=== PATIENT | male | born 1995 | race Caucasian/White ===

== ENCOUNTER 2017-06-06 09:13 | Emergency (ER) | payer MEDICAID, SELFPAY ==
[2017-06-06 09:19] VITALS: BP 136/90; PULSE 114; RESP 18; TEMP 36.7; O2SAT 95; BMI 23.0
--- NOTE | 2017-06-06 09:37 | XR_ITS ---
XR hand RT min 3V Ordering Physician: Stew Munroe MD Patient Age: 22 years: Male HISTORY: ITS.REASON: smashed right 3rd digit TECHNIQUE: 3 view right hand COMPARISON :None FINDINGS Fracture of the distal tuft ring finger. No significant displacement but there isMild cortical step-off seen here distal tuft. Slight distraction & elevation of the distal cortical fracture fragment seen on lateral view view.. On AP view Fracture extending longitudinally disrupting then the distal cortex of distal tuft.. Soft tissue swelling and injury with likely dorsal laceration associated here.. . There is mild swelling about the distal finger IMPRESSION Tuft fracture ring finger.. Minor distal cortical fracture & minor offset but no significant overall displacement. Associated soft tissue injury disruption dorsal aspect distal finger
--- NOTE | 2017-06-06 10:06 | HMH.EDWNDL ---
ED Disposition Clinical Impression: Nail avulsion, finger, Laceration of finger nail bed, Nondisplaced fracture, Laceration Disposition: Home, Self-Care Condition on Discharge: Good Instructions: DI for Laceration Repair Additional Instructions: 1-keep the finger dry and clean. 2-start antibiotics. 3-use a finger splint. 4-2 days wound check. 5-follow-up with orthopedic Dr. Marin. 6-14 days remova. 7-neurovascular check every hour . 8-to return for any redness,fever, discharge or change l Prescriptions: Ibuprofen [Motrin 600mg Tablet] 600 mg PO Q8HP PRN #21 tab PRN Reason: Moderate To Severe Pain cephALEXin [Cephalexin 500mg Tab] 500 mg PO QID #28 tab Referrals: Mayo Marin MD [Staff Physician] - - Critical Care Critical Care Time: No Attestation: On 06/06/17, the high probability of a clinically significant, sudden or life threatening deterioration of the following system(s) required my full and direct attention, intervention and personal management. The time I documented below is in addition to time spent performing reported procedures but includes the following listed in this critical care notation. Medical Decision Making Vital Signs: 06/06/17 09:19 Temperature 98.1 F Temperature Source Oral Pulse Rate [Left Brachial] 114 H Respiratory Rate 18 Blood Pressure [Left Arm] 136/90 Blood Pressure Mean [Left Arm] 105 Blood Pressure Source [Left Arm] Automatic Cuff Blood Pressure Position [Left Arm] Sitting 02 Sat by Pulse Oximetry 95 Oxygen Delivery Method Room Air Orders (Tests/Meds): ED MEDICATIONS Discontinued Medications Generic Name Dose Route Start Last Admin Trade Name Freq PRN Reason Stop Dose Admin Tetanus/Diphtheria Toxoids 0.5 ml 06/06/17 09:37 06/06/17 09:38 Tenivac 0.5ml Syringe IM 06/06/17 09:38 0.5 ml .ONCE ONE Administration ORDERS Category Date Time Status XR hand RT min 3V Stat Exams 06/06/17 09:37 Taken - Radiology Data #1 Image(s): Hand (Nondisplaced fracture of the right ring tuft. ) Image Reviewed: Yes I reviewed the patient's radiology image Preliminary Findings: Abnormal - Hao Inquiry Pt receiving controlled substance: No Hao was queried for this patient: No Medical Decision Making Narrative: Under local anesthesia using a sterile technique I placed a right ring finger block. Using the base of the nail was repositioned. Using four-point 0 Ethilon the nail was secured. Applied Neosporin updated his tetanus. Placed a finger splint with instructions for neurovascular check. I gave the patient Keflex 500 3 times daily with instructions for hourly neurovascular checks and follow-up with Dr. Hinson in the morning. I recehcked his movement and he did move His distal r ring PIP with intact ssensation and cap refill 2 seconds. Wound/Laceration HPI - General Chief Complaint: Wound/Laceration Stated Complaint: WC 06/06/17 lac to right ring finger Mode of Arrival: Ambulatory Limitations: No Limitations Description of Symptoms (Recalled from ER Triage Doc. by RN): laceration to Right 3rd digit - History of Present Illness HPI narrative: 22 years old white male with no significant past medical history works for [employer]. He was working on a machine when his right ring finger was caught with a result of nail avulsion and laceration at the base of the nail. The pain is tolerable and there is no loss of movement, no loss of color. Onset (ago): hour(s) (1 [address] ago.) Place: work Patient tetanus UTD: No Context: accidental, crush injury Associated symptoms: pain - Related Data Previous Rx's Medication Instructions Recorded Ibuprofen [Motrin 600mg 600 mg PO Q8HP PRN #21 tab 06/06/17 Tablet] cephALEXin [Cephalexin 500mg Tab] 500 mg PO QID #28 tab 06/06/17 Allergies Allergy/AdvReac Type Severity Reaction Status Date / Time No Known Allergies Allergy Unverified 05/04/17 14:55 [facility] History I mehta
--- NOTE | 2017-06-06 10:09 | ED_ITS ---
ED Disposition Clinical Impression: Nail avulsion, finger, Laceration of finger nail bed, Nondisplaced fracture, Laceration Disposition: Home, Self-Care Condition on Discharge: Good Instructions: DI for Laceration Repair Additional Instructions: 1-keep the finger dry and clean. 2-start antibiotics. 3-use a finger splint. 4-2 days wound check. 5-follow-up with orthopedic Dr. Marin. 6-14 days remova. 7-neurovascular check every hour . 8-to return for any redness,fever, discharge or change l Prescriptions: Ibuprofen [Motrin 600mg Tablet] 600 mg PO Q8HP PRN #21 tab PRN Reason: Moderate To Severe Pain cephALEXin [Cephalexin 500mg Tab] 500 mg PO QID #28 tab Referrals: Mayo Marin MD [Staff Physician] - - Critical Care Critical Care Time: No Attestation: On 06/06/17, the high probability of a clinically significant, sudden or life threatening deterioration of the following system(s) required my full and direct attention, intervention and personal management. The time I documented below is in addition to time spent performing reported procedures but includes the following listed in this critical care notation. Medical Decision Making Vital Signs: 06/06/17 09:19 Temperature 98.1 F Temperature Source Oral Pulse Rate [Left Brachial] 114 H Respiratory Rate 18 Blood Pressure [Left Arm] 136/90 Blood Pressure Mean [Left Arm] 105 Blood Pressure Source [Left Arm] Automatic Cuff Blood Pressure Position [Left Arm] Sitting 02 Sat by Pulse Oximetry 95 Oxygen Delivery Method Room Air Orders (Tests/Meds): ED MEDICATIONS Discontinued Medications Generic Name Dose Route Start Last Admin Trade Name Freq PRN Reason Stop Dose Admin Tetanus/Diphtheria Toxoids 0.5 ml 06/06/17 09:37 06/06/17 09:38 Tenivac 0.5ml Syringe IM 06/06/17 09:38 0.5 ml .ONCE ONE Administration ORDERS Category Date Time Status XR hand RT min 3V Stat Exams 06/06/17 09:37 Taken - Radiology Data #1 Image(s): Hand (Nondisplaced fracture of the right ring tuft. ) Image Reviewed: Yes I reviewed the patient's radiology image Preliminary Findings: Abnormal - Hao Inquiry Pt receiving controlled substance: No Hao was queried for this patient: No Medical Decision Making Narrative: Under local anesthesia using a sterile technique I placed a right ring finger block. Using the base of the nail was repositioned. Using four-point 0 Ethilon the nail was secured. Applied Neosporin updated his tetanus. Placed a finger splint with instructions for neurovascular check. I gave the patient Keflex 500 3 times daily with instructions for hourly neurovascular checks and follow-up with Dr. Hinson in the morning. I recehcked his movement and he did move His distal r ring PIP with intact ssensation and cap refill 2 seconds. Wound/Laceration HPI - General Chief Complaint: Wound/Laceration Stated Complaint: WC 06/06/17 lac to right ring finger Mode of Arrival: Ambulatory Limitations: No Limitations Description of Symptoms (Recalled from ER Triage Doc. by RN): laceration to Right 3rd digit - History of Present Illness HPI narrative: 22 years old white male with no significant past medical history works for [employer]. He was working on a machine when his right ring finger was caught with a result of nail avulsion and laceratio
[2017-06-06 11:53] VITALS: BP 134/88; PULSE 101; RESP 18; O2SAT 99
== END 2017-06-06 11:53 | disposition home or self-care (01) ==
PROVIDERS: Emergency Provider Emergency Medicine; Family Provider Internal Medicine Adolescent Medicine
DX: S62.604B Fracture of unspecified phalanx of right ring finger, initial encounter for open fracture (principal); W31.9XXA Contact with unspecified machinery, initial encounter; Y92.9 Unspecified place or not applicable; Y99.0 Civilian activity done for income or pay; Y93.9 Activity, unspecified; Z23 Encounter for immunization
CPT/HCPCS: 73130; 90714; 99282

== ENCOUNTER 2020-10-04 17:32 | Emergency (ER) | payer BC, SELFPAY ==
[2020-10-04 17:35] VITALS: BP 128/78; PULSE 76; RESP 20; TEMP 36.9; O2SAT 98; BMI 25.0
[2020-10-04 17:54] LABS: UTC Strep Screen (Rapid) Positive (Negative)
--- NOTE | 2020-10-04 17:54 | HMH.EDUTC ---
[facility] [place] Disposition Clinical Impression: Strep pharyngitis Disposition: Home, Self-Care Condition on Discharge: Good Instructions: DI for Strep Throat Additional Instructions: Replace toothbrush. Take antibiotics as directed until finished. Prescriptions: Amoxicillin [Amoxicillin 875MG Tab] 875 mg PO Q12H #20 tab Transmission Status: Pending to [id number] Referrals: Tim Dudley MD [Primary Care Provider] - Forms: Work/School Release Time of Disposition: 17:58 Medical Decision Making - Hao Inquiry Pt receiving controlled substance: No Vital Signs: 10/04/20 17:35 Temperature 98.4 F Temperature Source Oral Pulse Rate [Left Brachial] 76 Respiratory Rate 20 Blood Pressure [Left Arm] 128/78 Blood Pressure Mean [Left Arm] 94 Blood Pressure Source [Left Arm] Automatic Cuff Blood Pressure Position [Left Arm] Sitting 02 Sat by Pulse Oximetry 98 Oxygen Delivery Method Room Air - Lab Data Lab results reviewed: Yes: I reviewed the patient's lab results. [facility] [place] HPI - General Stated complaint: sore throat Time Seen by Provider: 10/04/20 17:54 Mode of Arrival: Ambulatory Source of Information: Patient Limitations: No Limitations Description of Symptoms (Recalled from Triage Doc. by RN): PATIENT C/O DRY COUGH, SORE THROAT, RUNNY NOSE, AND ACHINESS IN CHEST SINCE LAST NIGHT HEENT Symptoms (Recalled from RN notes): Yes Resp Symptoms (Recalled from RN notes): Yes Skin Symptoms (Recalled from RN notes): No MS Symptoms (Recalled from RN notes): No Functional Status (Recalled from RN notes): WNL - History of Present Illness Provider Complaint: Patient has had a sore throat, runny nose, and chest tightness since last night. No fever. Onset (ago): day(s) (1) Location: chest Relieving factors: none Exacerbating factors: none Associated symptoms: denies other symptoms Treatments prior to arrival: none - Related Data Previous Rx's Medication Instructions Recorded Amoxicillin [Amoxicillin 875MG 875 mg PO Q12H #20 tab 10/04/20 Tab] Allergies Allergy/AdvReac Type Severity Reaction Status Date / Time No Known Allergies Allergy Verified 07/15/17 14:50 - Worker's Comp Is this a Worker's Comp case?: No [facility] History - Hepatitis A Screen Drug use history?: No High risk sexual behaviors?: No History of sexually transmitted infection?: No Currently employed?: No Childcare worker?: No Do you have indoor plumbing?: Yes Do you have electricity?: Yes Attestation statement:: This patient has been screened for Hepatitis A risk factors. I have reviewed the patient's past medical history: Yes Amputation: No Fractures: No - Social History Smoking Status: Never smoker Tobacco Type: smokeless tobacco # Packs/Day (cigarettes): 0 Alcohol Intake: never Occupational Status: other Housing: house Family Hx:: No significant family history ROS Obtained: Yes All systems reviewed & no additional complaints - ENT Ears, Nose, Mouth, and Throat: Reports sore throat Physical Exam - General General appearance: alert, in no apparent distress - Head Head exam: normocephalic - Eye Eye exam: Present: PERRL - ENT ENT exam: Present: normal oropharynx - Expanded ENT Exam Nose exam: Absent: sinus tenderness Throat exam: Present: tonsillar erythema, tonsillomegaly, tonsillar exudate - Respiratory Respiratory exam: Present: normal lung sounds bilaterally - Cardiovascular Cardiovascular exam: Present: regular rate, normal rhythm - Neurological Exam Neurological exam: Present: alert, oriented X3 - Psychiatric Psychiatric exam: Present: normal affect, normal mood - Skin Skin exam: Present: warm, dry, intact
[2020-10-04 17:58] VITALS: BP 128/78; PULSE 76; RESP 20; TEMP 36.9; O2SAT 98
== END 2020-10-04 18:00 | disposition home or self-care (01) ==
PROVIDERS: Emergency Provider Physician Assistant; PCP Internal Medicine Adolescent Medicine
DX: J02.0 Streptococcal pharyngitis (principal)
CPT/HCPCS: 87880; 99202; G0463

== ENCOUNTER 2021-01-05 13:47 | Emergency (ER) | payer BC, SELFPAY ==
[2021-01-05 15:20] VITALS: BP 133/85; PULSE 76; RESP 18; TEMP 37; O2SAT 99; BMI 23.4
--- NOTE | 2021-01-05 15:46 | HMH.EDUTC ---
[facility] [place] Clinical Impression: Enlarged lymph node in neck Disposition: Home, Self-Care Condition on Discharge: Good Instructions: DI for Lymphadenopathy Additional Instructions: follow up with pcp if symptoms worsen or do not improve return or be seen in ed Prescriptions: Amoxicillin [Amoxicillin 500mg Tab] 500 mg PO BID 10 Days #20 tab Transmission Status: Pending to [id number] Referrals: Tim Dudley MD [Primary Care Provider] - Time of Disposition: 15:53 Medical Decision Making - Hao Inquiry Pt receiving controlled substance: No Vital Signs: 01/05/21 15:20 Temperature 98.6 F Temperature Source Oral Pulse Rate [Right Brachial] 76 Respiratory Rate 18 Blood Pressure [Right Arm] 133/85 Blood Pressure Mean [Right Arm] 101 Blood Pressure Source [Right Arm] Automatic Cuff Blood Pressure Position [Right Arm] Sitting 02 Sat by Pulse Oximetry 99 Oxygen Delivery Method Room Air [facility] [place] HPI - General Chief complaint: [facility] Stated complaint: neck left side lymph noes swollen Time Seen by Provider: 01/05/21 15:47 Mode of Arrival: Ambulatory Source of Information: Patient Limitations: No Limitations Description of Symptoms (Recalled from Triage Doc. by RN): PATIENT SWOLLEN LYMPH NODES SINCE LAST NIGHT HEENT Symptoms (Recalled from RN notes): Yes Resp Symptoms (Recalled from RN notes): No Skin Symptoms (Recalled from RN notes): No MS Symptoms (Recalled from RN notes): No Functional Status (Recalled from RN notes): WNL - History of Present Illness Provider Complaint: 25 yr old male presents for swollen lymph node in left neck. - Related Data Previous Rx's Medication Instructions Recorded Amoxicillin [Amoxicillin 875MG 875 mg PO Q12H #20 tab 10/04/20 Tab] Amoxicillin [Amoxicillin 500mg Tab] 500 mg PO BID 10 Days #20 tab 01/05/21 Allergies Allergy/AdvReac Type Severity Reaction Status Date / Time No Known Allergies Allergy Verified 07/15/17 14:50 - Worker's Comp Is this a Worker's Comp case?: No [facility] History - Hepatitis A Screen Drug use history?: No High risk sexual behaviors?: No History of sexually transmitted infection?: No Currently employed?: No Childcare worker?: No Do you have indoor plumbing?: Yes Do you have electricity?: Yes Attestation statement:: This patient has been screened for Hepatitis A risk factors. I have reviewed the patient's past medical history: Yes Amputation: No Fractures: No - Social History Smoking Status: Never smoker Tobacco Type: smokeless tobacco # Packs/Day (cigarettes): 0 Alcohol Intake: never Occupational Status: other Housing: house Family Hx:: No significant family history ROS Obtained: Yes Systems reviewed as appropriate & no additional complaints - Constitutional Constitutional: Reports system reviewed and no additional complaints, except as docu, Denies chills, Denies fever(s) - Eyes Eyes: Reports system reviewed and no additional complaints, except as docu, Denies blurry vision - ENT Ears, Nose, Mouth, and Throat: Reports system reviewed and no additional complaints, except as docu, Reports as per HPI Comments: pain in neck under jaw - Cardiovascular Cardiovascular: Reports system reviewed and no additional complaints, except as docu, Denies chest pain - Respiratory Respiratory: Reports system reviewed and no additional complaints, except as docu, Denies change in phlegm color - Gastrointestinal Gastrointestingal: Reports: system reviewed and no additional complaints, except as docu. Denies: change in stool character - Genitourinary Male Genitourinary: Reports system reviewed and no additional complaints, except as docu - Musculoskeletal Musculoskeletal: Reports system reviewed and no additional complaints, except as docu, Denies joint pain - Integumentary/Breasts Skin/Breast: Reports system reviewed and no additional complaints, except as docu, Denies rash - Aisha
[2021-01-05 16:09] VITALS: BP 133/85; PULSE 76; RESP 18; TEMP 37; O2SAT 99
[2021-01-05 22:12] LABS: UTC Strep Screen (Rapid) Positive (Negative)
== END 2021-01-05 16:11 | disposition home or self-care (01) ==
PROVIDERS: Emergency Provider Nurse Practitioner Family; PCP Internal Medicine Adolescent Medicine
DX: J02.0 Streptococcal pharyngitis (principal); R59.0 Localized enlarged lymph nodes
CPT/HCPCS: 87880; 99202; G0463

== ENCOUNTER 2021-12-30 21:54 | Emergency (ER) | payer BC, SELFPAY ==
[2021-12-30 23:02] VITALS: BP 00/00; PULSE 0; RESP 0; TEMP -17.7; TEMP 0
--- NOTE | 2021-12-30 23:03 | PC.NURSE ---
Pt left without being seen from ER. Was never brought back into the ER due to a lack of an available bed.
== END 2021-12-30 23:03 | disposition left against medical advice (07) ==
PROVIDERS: Emergency Provider Emergency Medicine; PCP Internal Medicine Adolescent Medicine
DX: R10.9 Unspecified abdominal pain (principal); Z53.21 Procedure and treatment not carried out due to patient leaving prior to being seen by health care provider

== ENCOUNTER 2021-12-31 09:29 | Emergency (ER) | payer BC, SELFPAY ==
[2021-12-31 09:48] VITALS: BP 153/100; PULSE 100; RESP 15; TEMP 36.9; O2SAT 99; BMI 23.7
[2021-12-31 09:54] LABS: Apearance,Urine Turbid (Clear); Bilirubin,Urine Negative (Negative); Blood, Urine Negative (Negative); Color,Urine Dark Yellow (Yellow); Glucose,Urine (UA) Negative (Negative); Ketones,Urine Negative (Negative); PH,Urine 6.5 (5.0-8.5); Protein,Urine Negative (Negative); Specific Gravity, Urine >= 1.030 (1.005-1.030); Urobilinogen,Urine 0.2 EU/dl (0.2)
[2021-12-31 09:55] LABS: UTC Leukocyte Esterase,Urine Negative (Negative); UTC Nitrate,Urine Negative (Negative)
--- NOTE | 2021-12-31 10:07 | HMH.EDUTC ---
[facility] [place] Disposition Clinical Impression: Abdominal pain Qualifiers: Abdominal location: unspecified location Qualified Code(s): R10.9 - Unspecified abdominal pain Disposition: Still a Patient Condition on Discharge: Fair Referrals: Tim Dudley MD [Primary Care Provider] - Time of Disposition: 10:30 Medical Decision Making - Medical Records Medical records reviewed: No: I reviewed the patient's medical records. - Hao Inquiry Pt receiving controlled substance: No Vital Signs: 12/31/21 09:48 Temperature 98.4 F Temperature Source Oral Pulse Rate [Left] 100 H Respiratory Rate 15 Blood Pressure [Right Arm] 153/100 H Blood Pressure Mean [Right Arm] 117 02 Sat by Pulse Oximetry 99 - Lab Data Lab Results 12/31/21 09:53: Urine Color Dark yellow, Urine Appearance Turbid, Urine pH 6.5, Ur Specific [place] >= 1.030, Urine Protein Negative, Urine Glucose (UA) Negative, Urine Ketones Negative, Urine Blood Negative, Urine Nitrate Negative, Urine Bilirubin Negative, Urine Urobilinogen 0.2, Ur Leukocyte Esterase Negative Orders (Tests/Meds): ORDERS Category Date Time Status Urine Culture Stat Micro 12/31/21 10:29 Ordered Medical Decision Narrative: he was transferred to the er due to his abdominal pain. [facility] [place] HPI - General Stated complaint: nausea, stomach hurting Time Seen by Provider: 12/31/21 10:07 Mode of Arrival: Ambulatory Source of Information: Patient Limitations: No Limitations Description of Symptoms (Recalled from Triage Doc. by RN): patient comes in with complaints of stomach discomfort. symptoms began to get worse last night. the pain comes and goes. middle to left. weird when he urinates. HEENT Symptoms (Recalled from RN notes): No Resp Symptoms (Recalled from RN notes): No Skin Symptoms (Recalled from RN notes): No MS Symptoms (Recalled from RN notes): No Functional Status (Recalled from RN notes): n/a - History of Present Illness Provider Complaint: He c/o upper abdominal pain for the past 2 days. He rates the pain as a 6 on pain scale. He states the pain is constant, but it does get worse and better at times. He has had nausea but no vomiting. He has had soft bowel movements, but not diarrhea. - Related Data Previous Rx's Medication Instructions Recorded Amoxicillin [Amoxicillin 875MG 875 mg PO Q12H #20 tab 05/21/21 Tab] Amoxicillin [Amoxicillin 500mg Tab] 500 mg PO BID 10 Days #20 tab 01/05/21 Allergies Allergy/AdvReac Type Severity Reaction Status Date / Time No Known Allergies Allergy Verified 12/31/21 09:52 - Worker's Comp Is this a Worker's Comp case?: No [facility] History - Hepatitis A Screen Attestation statement:: This patient has been screened for Hepatitis A risk factors. I have reviewed the patient's past medical history: Yes Amputation: No Fractures: No - Social History Smoking Status: Never smoker Tobacco Type: smokeless tobacco # Packs/Day (cigarettes): 0 Alcohol Intake: never Occupational Status: other Housing: house Family Hx:: No significant family history ROS Obtained: Yes All systems reviewed & no additional complaints - Constitutional Constitutional: Reports as per HPI - Eyes Eyes: Denies eye discharge - ENT Ears, Nose, Mouth, and Throat: Reports as per HPI - Cardiovascular Cardiovascular: Denies chest pain - Respiratory Respiratory: Denies chest congestion, Denies cough - Gastrointestinal Gastrointestingal: Reports: as per HPI - Genitourinary Male Genitourinary: Denies difficulty urinating, Denies urinary frequency, Denies urinary hesitancy - Musculoskeletal Musculoskeletal: Denies joint pain, Denies back pain - Integumentary/Breasts Skin/Breast: Denies rash Physical Exam - General General appearance: alert, in no apparent distress - Head Head exam: atraumatic, normocephalic, normal inspection - Eye Eye exam: Present: normal appearance, PERRL, EOMI - ENT ENT exam: Present: normal exa
--- NOTE | 2021-12-31 10:43 | HMH.EDGENADL ---
ED Disposition Clinical Impression: Abdominal pain Qualifiers: Abdominal location: unspecified location Qualified Code(s): R10.9 - Unspecified abdominal pain Disposition: Home, Self-Care Condition on Discharge: Good Instructions: Gastritis Referrals: Tim Dudley MD [Primary Care Provider] - - Critical Care Critical Care Time: No Attestation: On 12/31/21, the high probability of a clinically significant, sudden or life threatening deterioration of the following system(s) required my full and direct attention, intervention and personal management. The time I documented below is in addition to time spent performing reported procedures but includes the following listed in this critical care notation. Medical Decision Making - Hao Inquiry Pt receiving controlled substance: Yes Hao was queried for this patient: No Risks and benefits of using a controlled substance: were discussed with pt by me Vital Signs: 12/31/21 09:48 12/31/21 10:45 12/31/21 12:32 Temperature 98.4 F 98.4 F Temperature Source Oral Oral Pulse Rate 76 Pulse Rate [Left] 100 H 82 Respiratory Rate 15 20 18 Blood Pressure 136/85 Blood Pressure [Right Arm] 153/100 H 152/101 H Blood Pressure Mean 95 Blood Pressure Mean [Right Arm] 117 118 Blood Pressure Source [Right Arm] Automatic Cuff Blood Pressure Position [Right Arm] Sitting 02 Sat by Pulse Oximetry 99 100 100 Oxygen Delivery Method Room Air Room Air - Lab Data Lab Results 12/31/21 09:53: Urine Color Dark yellow, Urine Appearance Turbid, Urine pH 6.5, Ur Specific [place] >= 1.030, Urine Protein Negative, Urine Glucose (UA) Negative, Urine Ketones Negative, Urine Blood Negative, Urine Nitrate Negative, Urine Bilirubin Negative, Urine Urobilinogen 0.2, Ur Leukocyte Esterase Negative 12/31/21 11:05: WBC 5.8, RBC 5.64, Hgb 16.6, Hct 52.1 H, MCV 92.4, MCH 29.5, MCHC 31.9, RDW 12.9, Plt Count 268, MPV 8.1, Neut % (Auto) 59.8, Lymph % (Auto) 29.5, [place] % (Auto) 7.3, Eos % (Auto) 2.1, Baso % (Auto) 1.3, Neut # (Auto) 3.4, Lymph # (Auto) 1.7, [place] # (Auto) 0.4, Eos # (Auto) 0.1, Baso # (Auto) 0.1 12/31/21 11:05: Sodium 142, Potassium 3.6, Chloride 100, Carbon Dioxide 32 H, Anion Gap 13.6, BUN 10, Creatinine 0.80, Estimated Creat Clear 156, Estimated GFR 116, Est GFR ( Amer) 140, Glucose 107 H, Calcium 9.8, Total Bilirubin 0.3, AST 29, ALT 18, Alkaline Phosphatase 92, Troponin I < 0.01, C-Reactive Protein 0.5, Total Protein 8.2, Albumin 5.0, Globulin 3.2, Albumin/Globulin Ratio 1.6 12/31/21 11:05: Lipase 66 Result diagrams: 12/31/21 11:05 12/31/21 11:05 Orders (Tests/Meds): ED MEDICATIONS Generic Name Dose Route Start Last Admin Trade Name Freq PRN Reason Stop Dose Admin Sodium Chloride 10 ml 12/31/21 11:05 Sodium Chloride 0.9% 10ml Flush Syringe IV 01/30/22 11:04 NEEDED PRN Maintain IV Site Discontinued Medications Generic Name Dose Route Start Last Admin Trade Name Freq PRN Reason Stop Dose Admin Belladonna Alkaloids 60 ml 12/31/21 12:00 12/31/21 12:05 Gi Cocktail 60ml Udc PO 12/31/21 12:01 60 ml ONCE ONE Administration Lactated Ringer's 1,000 mls @ 999 mls/hr 12/31/21 11:00 12/31/21 11:13 Lactated Ringer's 1000 Ml Bag IV 12/31/21 12:00 999 mls/hr .Q1H1M CHRISTIANE Administration Iopamidol 75 ml 12/31/21 11:12 12/31/21 11:13 Iopamidol-370 (76%);100ml Bottle IV 12/31/21 11:13 75 ml ONCE ONE Administration Morphine Sulfate 4 mg 12/31/21 10:48 12/31/21 11:14 Morphine 4mg/Ml Syringe IV 12/31/21 10:49 4 mg ONCE ONE Administration Ondansetron HCl 4 mg 12/31/21 10:48 12/31/21 11:13 Ondansetron 4mg/2ml Vial IV 12/31/21 10:49 4 mg ONCE ONE Administration Sodium Chloride 10 ml 12/31/21 11:12 12/31/21 11:13 Sodium Chloride 0.9% 10ml Syr (Rad Only) IV 12/31/21 11:13 10 ml ONCE ONE Administration ORDERS Category Date Time Status Troponin I Q3H Lab 12/31/21 14:00 Ordered Tr
[2021-12-31 10:45] VITALS: BP 152/101; PULSE 82; RESP 20; TEMP 36.9; O2SAT 100; BMI 23.7
--- NOTE | 2021-12-31 10:49 | CT_ITS ---
FINAL REPORT CLINICAL HISTORY: epigastric pain FINDINGS: CT OF THE ABDOMEN AND PELVIS WITH CONTRAST Axial CT images of the abdomen and pelvis were obtained after the administration of IV contrast. Coronal reformatted images were also obtained and reviewed.This study was performed with techniques to keep radiation doses as low as reasonably achievable (ALARA). Individualized dose reduction techniques using automated exposure control or adjustment of mA and/or kV according to the patient's size were employed. Abdomen: The lung bases are clear. The heart is normal in size. The liver has an unremarkable appearance, without evidence of mass or biliary ductal dilatation. The gallbladder is present. The spleen is unremarkable. No adrenal mass is present. The pancreas has an unremarkable appearance. The kidneys are normal, without evidence of mass or hydronephrosis. The aorta is normal in caliber. There is no free fluid or adenopathy. No mass or abnormal fluid collection is seen. Pelvis: The appendix is mildly enlarged measuring 7 mm but without significant adjacent inflammation. There is no convincing appendicitis. There is wall thickening of the descending colon with mild adjacent stranding which is worrisome for mild colitis. The urinary bladder is unremarkable. There is no evidence of mass or adenopathy. There is no evidence of bowel obstruction. IMPRESSION: Appendix is enlarged but with no significant adjacent inflammation, no convincing appendicitis. Findings worrisome for mild colitis. Reviewed, Interpreted and Dictated by Abram Mendez III, MD Transcribed by Ngozi Farley Authenticated and [facility]
--- NOTE | 2021-12-31 10:52 | ECG_ITS ---
APPROVED REPORT Exam: Resting ECG HR:83 bpm ECG Measurements Heart Rate 83 AXES OH 137 P 58 QRSd 106 QRS 76 QT 386 T 13 QTc 426 Conclusion SINUS RHYTHM WITH SINUS ARRHYTHMIA NORMAL ECG UNCONFIRMED REPORT Electronically signed by : Tim Dudley MD 12/31/2021 17:36:10
--- NOTE | 2021-12-31 10:55 | PC.NURSE ---
EKG performed and given to FAMILIA MEJIA
--- NOTE | 2021-12-31 11:03 | PC.NURSE ---
pt to radiology via wc with geotechnical department manager
--- NOTE | 2021-12-31 11:10 | PC.NURSE ---
pt returned from CT via wc with chief radiology
[2021-12-31 11:19] LABS: Basophils # 0.1 K/mm3 (0-0.2); Basophils % 1.3 % (0.1-2.0); Eosinophils # 0.1 K/mm3 (0.0-0.4); Eosinophils % 2.1 % (0.1-12.0); Hematocrit 52.1 % (42.0-52.0); Hemoglobin 16.6 g/dL (14.1-18.0); Lymphocytes # 1.7 K/mm3 (0.7-4.5); Lymphocytes % 29.5 % (10-50); Mean Corpuscular HGB Conc 31.9 g/dL (31.8-35.4); Mean Corpuscular Hemoglobin 29.5 pg (27.0-31.2); Mean Corpuscular Volume 92.4 fl (80-94); Mean Platelet Volume 8.1 fl (7.4-10.4); Monocytes # 0.4 K/mm3 (0.1-1.0); Monocytes % 7.3 % (1.7-9.3); Neutrophils # 3.4 K/mm3 (1.8-7.8); Neutrophils % 59.8 % (37.0-80.0); Platelet Count 268 K/mm3 (142-424); Red Blood Count 5.64 M/mm3 (4.60-6.20); Red Cell Distribution Width 12.9 % (11.5-17.5); White Blood Count 5.8 K/mm3 (4.8-10.8)
[2021-12-31 11:22] LABS: Alanine Aminotransferase 18 U/L (12-78); Albumin/Globulin Ratio 1.6 (1.1-1.8); Alkaline Phosphatase 92 U/L (38-126); Anion Gap 13.6 mEq/L (5-15); Aspartate Amino Transferase 29 U/L (17-59); Bilirubin,Total 0.3 mg/dl (0.2-1.3); Blood Urea Nitrogen 10 mg/dl (9-20); Calcium 9.8 mg/dl (8.4-10.2); Carbon Dioxide 32 mmol/L (22.0-30.0); Chloride 100 mmol/L (98-107); Creatinine Clearance Estimated 156 mL/min (50-200); Estimated Glomerular Filt Rate 116 ml/min (>60); GFR (African American) 140 ML/MIN (>60); Globulin 3.2 g/dL (1.3-3.2); Glucose 107 mg/dl (74-100); Lipase 66 U/L (23-300); Potassium 3.6 mmoL/L (3.5-5.1); Sodium 142 mmol/L (136-145); Total Protein,Serum 8.2 g/dl (6.3-8.2)
[2021-12-31 11:28] LABS: C-Reactive Protein 0.5 mg/L (0-4)
[2021-12-31 11:40] LABS: Troponin I < 0.01 ng/ml (0.00-0.034)
[2021-12-31 12:32] VITALS: BP 136/85; PULSE 76; RESP 18; O2SAT 100
--- NOTE | 2021-12-31 12:32 | PC.NURSE ---
rounded on pt at this time, pt sitting up in bed, updated pt we are waiting on Ct results. Pt states no needs at this time. Call light within reach, oriented pt to call light prior to leaving room. Will continue to monitor.
[2021-12-31 13:28] VITALS: BP 137/82; PULSE 74; RESP 18; TEMP 36.9; O2SAT 100
== END 2021-12-31 13:29 | disposition home or self-care (01) ==
LOC: UTC 09:34 → ER 10:27
PROVIDERS: Nurse Practitioner Family; Emergency Provider Student in an Organized Health Care Education/Training Program; PCP Internal Medicine Adolescent Medicine
DX: R10.9 Unspecified abdominal pain (principal)
CPT/HCPCS: 74177; 80053; 81003; 83690; 84484; 85025; 86140; 87086; 93005; 96365; 96375; 99284; J2405; Q9967

== ENCOUNTER 2022-03-07 12:13 | Emergency (ER) | payer BC, SELFPAY ==
[2022-03-07 13:57] VITALS: BP 124/79; PULSE 114; RESP 18; TEMP 37.2; O2SAT 98; BMI 24.4
--- NOTE | 2022-03-07 13:58 | EXP.UTC ---
Discharge Plan Disposition Patient Disposition: Home, Self-Care Condition: Good Prescriptions Prescriptions: New azithromycin [Zithromax] 250 mg tablet 250 mg PO UD DOSE PK Qty: 6 0RF Rx Instructions: Take two (2) tablets today, then one (1) tablet days #2 thru #5 methylprednisolone 4 mg Tablets,Dose Pack 4 mg PO DIRECTED Qty: 21 0RF No Action amoxicillin 875 MG tablet 875 mg PO Q12H Qty: 20 0RF amoxicillin 500 MG tablet 500 mg PO BID 10 Days Qty: 20 0RF Referrals Follow up/Referrals: Tim Dudley MD [Primary Care Provider] - See instructions Activity Restrictions/Add. Instructions Additional Instructions/Restrictions: Drink plenty of fluids. Take tylenol or ibuprofen for pain or fever. Take the medications as directed. Follow up with your regular doctor. GO TO THE ER FOR ANY WORSENING SYMPTOMS Clinical Impressions Clinical Impression: Pharyngitis Instructions Patient Instructions: DI for Pharyngitis/Tonsillopharyngitis -- Adult Discharge ED Provider: Mayo Farias [facility] General Stated complaint: sore throat, chest congestion body aches Time Seen by Provider: 03/07/22 13:48 History of Present Illness Provider Complaint: He c/o sore throat for the past 2 days. He also has sinus congestion. He denies significant cough and chest congestion. He has took home covid-19 test and it was negative. Related Data Previous Rx's Medication Instructions Recorded amoxicillin 875 mg tablet 875 mg PO Q12H #20 tabs 10/04/20 amoxicillin 500 mg tablet 500 mg PO BID 10 days #20 tabs 01/05/21 azithromycin 250 mg tablet 250 mg PO UD DOSE PK #6 tabs 03/07/22 (Zithromax) methylprednisolone 4 mg tablets in 4 mg PO DIRECTED #21 tabs 03/07/22 a dose pack Allergies Allergy/AdvReac Type Severity Reaction Status Date / Time No Known Allergies Allergy Verified 03/07/22 14:00 [facility] Social History Smoking Status: Never smoker alcohol intake: never current occupational status: other Travel in the last 8 weeks: None housing: house ROS Obtained: Yes All systems reviewed & no additional complaints except as documented Constitutional Constitutional: Reports chills and Reports fever(s) Eyes Eyes: Denies eye discharge ENT Ears, Nose, Mouth, and Throat: Reports as per HPI Cardiovascular Cardiovascular: Denies chest pain Respiratory Respiratory: Denies chest congestion and Reports cough Gastrointestinal Gastrointestingal: Reports nausea; Denies abdominal pain, constipation, cramping, diarrhea or vomiting Musculoskeletal Musculoskeletal: Denies arthralgias Integumentary/Breasts Skin/Breast: Denies rash Neurologic Neurologic: Denies paresthesias Physical Exam General General appearance: alert and in no apparent distress Head Head exam: atraumatic, normocephalic and normal inspection Eye Eye exam: Present normal appearance, PERRL and EOMI ENT ENT exam: Present mucous membranes moist and normal external ear exam Expanded ENT Exam TM/Canal exam: Bilateral TM: erythema and bulging Nose exam: Absent sinus tenderness Mouth exam: Present normal external inspection; Absent drooling Teeth exam: Present normal inspection Throat exam: Present tonsillar erythema, tonsillomegaly and tonsillar exudate Neck Neck exam: Present normal inspection, full ROM and trachea midline; Absent tenderness, meningismus or lymphadenopathy Chest Chest inspection: Present normal inspection and symmetric chest wall rise; Absent tenderness Respiratory Respiratory exam: Present normal lung sounds bilaterally; Absent respiratory distress, wheezes or stridor Cardiovascular Cardiovascular exam: Present regular rate and normal rhythm; Absent systolic murmur or diastolic murmur Abdominal Exam Abdominal exam: Present soft and normal bowel sounds; Absent distention, tenderness, guarding, rebound or rigidity Extremities Exam Extremit
[2022-03-07 14:03] LABS: UTC Strep Screen (Rapid) Positive (Negative)
[2022-03-07 14:20] VITALS: BP 124/79; PULSE 114; RESP 18; TEMP 37.2
== END 2022-03-07 14:22 | disposition home or self-care (01) ==
PROVIDERS: Emergency Provider Nurse Practitioner Family; PCP Internal Medicine Adolescent Medicine
DX: J02.0 Streptococcal pharyngitis (principal); B95.0 Streptococcus, group A, as the cause of diseases classified elsewhere; R50.9 Fever, unspecified; M79.10 Myalgia, unspecified site; R11.0 Nausea; R09.81 Nasal congestion; Z79.52 Long term (current) use of systemic steroids
CPT/HCPCS: 87880; 99213; G0463

== ENCOUNTER 2022-03-30 20:54 | Emergency (ER) | payer BC, SELFPAY ==
--- NOTE | 2022-03-30 20:50 | ECG_ITS ---
APPROVED REPORT Exam: Resting ECG HR:127 bpm ECG Measurements Heart Rate 127 AXES KS 150 P 78 QRSd 94 QRS 91 QT 306 T 61 QTc 381 Conclusion SINUS TACHYCARDIA BORDERLINE RIGHT AXIS DEVIATION [QRS AXIS > 90] ABNORMAL RHYTHM ECG UNCONFIRMED REPORT Electronically signed by : Tim Dudley MD 03/31/2022 19:42:49
[2022-03-30 20:54] VITALS: BP 171/108; PULSE 132; RESP 16; TEMP 36.9; O2SAT 100; BMI 23.7
--- NOTE | 2022-03-30 20:55 | XR_ITS ---
PROCEDURE INFORMATION: Exam: XR Chest Exam date and time: 03/30/2022 9:00 PM Age: 27 years old Clinical indication: Pain; Radiating; Additional info: Cp TECHNIQUE: Imaging protocol: Radiologic exam of the chest. Views: 2 views. COMPARISON: No relevant prior studies available. FINDINGS: Lungs: No consolidation. Few probable granulomas. Pleural spaces: No significant pleural effusion. No pneumothorax. Heart/Mediastinum: No cardiomegaly. Bones/joints: No displaced fracture. Soft tissues: Unremarkable. IMPRESSION: No definite acute cardiopulmonary disease.
[2022-03-30 21:03] LABS: Basophils # 0.1 K/mm3 (0-0.2); Basophils % 1.6 % (0.1-2.0); Eosinophils % 0.5 % (0.1-12.0); Hematocrit 49.7 % (42.0-52.0); Hemoglobin 16.5 g/dL (14.1-18.0); Lymphocytes # 2.1 K/mm3 (0.7-4.5); Mean Corpuscular HGB Conc 33.2 g/dL (31.8-35.4); Mean Corpuscular Hemoglobin 30.1 pg (27.0-31.2); Mean Corpuscular Volume 90.7 fl (80-94); Mean Platelet Volume 7.7 fl (7.4-10.4); Monocytes # 0.3 K/mm3 (0.1-1.0); Monocytes % 4.6 % (1.7-9.3); Neutrophils # 4.7 K/mm3 (1.8-7.8); Neutrophils % 64.3 % (37.0-80.0); Platelet Count 314 K/mm3 (142-424); Red Blood Count 5.48 M/mm3 (4.60-6.20); Red Cell Distribution Width 12.9 % (11.5-17.5); White Blood Count 7.3 K/mm3 (4.8-10.8)
[2022-03-30 21:13] LABS: Anion Gap 16.6 mEq/L (5-15); Blood Urea Nitrogen 15 mg/dl (9-20); Calcium 9.6 mg/dl (8.4-10.2); Carbon Dioxide 33 mmol/L (22.0-30.0); Chloride 96 mmol/L (98-107); Creatinine Clearance Estimated 137 mL/min (50-200); Estimated Glomerular Filt Rate 100 ml/min (>60); GFR (African American) 122 ML/MIN (>60); Glucose 127 mg/dl (74-100); Potassium 3.6 mmoL/L (3.5-5.1); Sodium 142 mmol/L (136-145)
[2022-03-30 21:28] LABS: Troponin I < 0.01 ng/ml (0.00-0.034)
[2022-03-30 21:30] VITALS: BP 129/104; PULSE 101; RESP 20; O2SAT 95
[2022-03-30 22:00] VITALS: BP 119/75; PULSE 100; RESP 19; O2SAT 98
--- NOTE | 2022-03-30 22:30 | PC.NURSE ---
Pt resting in bed. Lights turned off per request. No needs voiced at this time.
--- NOTE | 2022-03-30 22:41 | PC.NURSE ---
speaking with pt a this time
--- NOTE | 2022-03-30 22:46 | CT_ITS ---
PROCEDURE INFORMATION: Exam: CTA Chest With Contrast Exam date and time: 03/30/2022 11:52 PM Age: 27 years old Clinical indication: Pain; Radiating; Additional info: Md landrum, cp TECHNIQUE: Imaging protocol: Computed tomographic angiography of the chest with contrast. 3D rendering (Not supervised by radiologist): MIP and/or 3D reconstructed images were created by the technologist. Radiation optimization: All CT scans at this facility use at least one of these dose optimization techniques: automated exposure control; mA and/or kV adjustment per patient size (includes targeted exams where dose is matched to clinical indication); or iterative reconstruction. Contrast material: ISOVUE; Contrast volume: 70 ml; Contrast route: INTRAVENOUS (IV); COMPARISON: CR XR CHEST 2V 03/30/2022 9:00 PM FINDINGS: Pulmonary arteries: No pulmonary embolism. Aorta: Unremarkable. No aneurysm. Lungs: Minimal patchy groundglass/nodular airspace disease within posterior periphery RIGHT upper lobe. Few calcified granulomas. Few noncalcified nodules and/or focal scarring, up to 0.3 cm. Pleural spaces: No significant pleural effusion. No pneumothorax. Heart: No cardiomegaly. No pericardial effusion. Lymph nodes: Calcified mediastinal and hilar lymph nodes. Spleen: Small calcification. Bones/joints: Schmorl's nodes. No acute fracture. Soft tissues: Unremarkable. IMPRESSION: 1. No CT evidence of pulmonary embolism. 2. Probable early RIGHT upper lobe pneumonia in proper clinical setting. Followup to resolution to exclude underlying pathology. 3. Pulmonary nodules. If patient does not have known cancer, follow up should be based on clinical information because of the low risk of cancer in this age group. (skip Palma al., Fleischner Society, 2017).
--- NOTE | 2022-03-30 22:46 | [facility].EDCP ---
Discharge Plan Disposition Patient Disposition: Home, Self-Care Prescriptions Prescriptions: New prednisone [prednisone] 20 mg tablet 20 mg PO BID Qty: 10 0RF No Action amoxicillin 875 MG tablet 875 mg PO Q12H Qty: 20 0RF amoxicillin 500 MG tablet 500 mg PO BID 10 Days Qty: 20 0RF azithromycin [Zithromax] 250 mg tablet 250 mg PO UD DOSE PK Qty: 6 0RF Rx Instructions: Take two (2) tablets today, then one (1) tablet days #2 thru #5 methylprednisolone 4 mg Tablets,Dose Pack 4 mg PO DIRECTED Qty: 21 0RF Referrals Follow up/Referrals: Provider,Referral, MD [Primary Care Provider] - See instructions Clinical Impressions Clinical Impression: Atypical chest pain Instructions Patient Instructions: DI for Atypical Chest Pain Discharge ED Provider: Perry Watkins Chest Pain HPI General Chief Complaint: Chest Pain Stated Complaint: cp Time Seen by Provider: 03/30/22 22:46 Mode of Arrival: Ambulatory Source of Information: Patient, Parent(s) and Medical Record Limitations: No Limitations Description of Symptoms (Recalled from ER Triage Doc. by RN): pt c/o chest pain pressure radiating to back that started yesterday History of Present Illness HPI narrative: chest and back pain on lt w/o fever/rash or trauma - no recent viral illness - had elevated hr complaint: chest pain Onset (ago): day(s) Pain location: left chest Severity: moderate JOEL Score for Non-Stemi Age of Patient: <30 years old Heart Rate: 70-89 bpm Systolic Blood Pressure: 120-139 mmhg Serum Creatinine: 0.80-1.19 mg/dl CHF [place] Class: I-No CHF Other Risk Factors: None Non-Stemi Risk Score: 50 Related Data Previous Rx's Medication Instructions Recorded amoxicillin 875 mg tablet 875 mg PO Q12H #20 tabs 10/04/20 amoxicillin 500 mg tablet 500 mg PO BID 10 days #20 tabs 01/05/21 azithromycin 250 mg tablet 250 mg PO UD DOSE PK #6 tabs 03/07/22 (Zithromax) methylprednisolone 4 mg tablets in 4 mg PO DIRECTED #21 tabs 03/07/22 a dose pack prednisone 20 mg tablet 20 mg PO BID #10 tabs 03/31/22 Allergies Allergy/AdvReac Type Severity Reaction Status Date / Time No Known Allergies Allergy Verified 03/07/22 14:[address] [facility] Social History Smoking Status: Current every day smoker tobacco type: smokeless tobacco alcohol intake: never current occupational status: other Travel in the last 8 weeks: None housing: house ROS Obtained: Yes All systems reviewed & no additional complaints except as documented Physical Exam General General appearance: alert Head Head exam: normocephalic Eye Eye exam: Present PERRL and EOMI ENT ENT exam: Present mucous membranes moist Neck Neck exam: Present trachea midline Respiratory Respiratory exam: Present normal lung sounds bilaterally; Absent respiratory distress Cardiovascular Cardiovascular exam: Present regular rate; Absent systolic murmur or rubs Abdominal Exam Abdominal exam: Present soft Extremities Exam Extremities exam: Present full ROM Neurological Exam Neurological exam: Present alert, oriented X3 and CN II-XII intact; Absent motor sensory deficit Psychiatric Psychiatric exam: Present normal affect Skin Skin exam: Absent rash Medical Decision Making Medical Records Medical records reviewed: Yes I reviewed the patient's medical records. Hao Inquiry Pt receiving controlled substance: No Vital Signs: 03/30/22 20:54 03/30/22 21:30 03/30/22 22:00 Temperature 98.4 F Temperature Source Oral Pulse Rate 101 H 100 H Pulse Rate [Right] 132 H Respiratory Rate 16 20 19 Blood Pressure 129/104 H 119/75 Blood Pressure [Right Arm] 171/108 H Blood Pressure Mean [Right Arm] 129 Blood Pressure Source Blood Pressure Position 02 Sat by Pulse Oximetry 100 95 98 Oxygen Delivery Method Room Air Room Air 03/30/22 23:30 03/31/22 00:03 03/31/22 00:03 Temperature 98
[2022-03-30 23:02] LABS: Coronavirus 19, PCR Not Detected (NotDetected); Influenza A, PCR Not Detected (NotDetected); Influenza B, PCR Not Detected (NotDetected)
[2022-03-30 23:15] LABS: Strep Scrn Group A (Rapid) Negative (Negative)
[2022-03-30 23:30] VITALS: BP 137/94; PULSE 94; RESP 17; O2SAT 98
[2022-03-31 00:03] VITALS: BP 136/92; PULSE 78; PULSE 90; RESP 16; TEMP 36.6; O2SAT 98
[2022-03-31 00:24] LABS: Troponin I < 0.01 ng/ml (0.00-0.034)
== END 2022-03-31 00:58 | disposition home or self-care (01) ==
PROVIDERS: Emergency Provider Emergency Medicine
DX: R07.89 Other chest pain (principal); M54.9 Dorsalgia, unspecified; R00.0 Tachycardia, unspecified; Z20.822 Contact with and (suspected) exposure to COVID-19; F17.290 Nicotine dependence, other tobacco product, uncomplicated; Z79.52 Long term (current) use of systemic steroids
CPT/HCPCS: 71046; 71275; 80048; 84484; 85025; 87430; 93005; 96360; 96374; 96375; 99285; C9803; Q9967; U0003; U0005

== ENCOUNTER 2023-07-23 06:58 | Outpatient (CLI) | payer BC, SELFPAY ==
--- NOTE | 2023-07-23 07:02 | CT_ITS ---
FINAL REPORT TECHNIQUE: Axial CT images of the abdomen were obtained without contrast. Coronal reformatted images were also obtained.This study was performed with techniques to keep radiation doses as low as reasonably achievable (ALARA). Individualized dose reduction techniques using automated exposure control or adjustment of mA and/or kV according to the patient''s size were employed. CLINICAL HISTORY: ABD WALL HERNIA COMPARISON: 12/31/2021 FINDINGS: The lung bases are clear. The liver has an unremarkable appearance, without evidence of mass. The gallbladder appears normal without evidence of gallstones. There is no evidence of biliary ductal dilatation. The pancreas appears normal. The spleen size is within normal limits. There is no evidence of renal stone or hydronephrosis. There is no abdominal wall hernia identified. There is no evidence of adenopathy. No mass or abnormal fluid collection is seen. No localized inflammatory processes identified. The appendix is normal. IMPRESSION: No mass or localized inflammatory process identified. No evidence of abdominal wall hernia. Reviewed, Interpreted and Dictated by Abram Mendez III, MD Transcribed by Rosie Encinas Authenticated and [facility]
== END 2023-07-23 23:59 ==
LOC: RAD 06:58
PROVIDERS: PCP Internal Medicine Adolescent Medicine; Visit Provider Internal Medicine Adolescent Medicine
DX: K43.9 Ventral hernia without obstruction or gangrene (principal)
CPT/HCPCS: 74150